=== PATIENT | male | born 1945 | race Caucasian/White ===

== ENCOUNTER 2020-06-19 12:12 | Day surgery (SDC) | payer MEDICARE ==
[2020-06-17 15:01] LABS: ALANINE AMINOTRANSFERASE 34 U/L (12-78); ALBUMIN 4.1 g/dL (3.4-5.0); ANION GAP 4 mmol/L (5-15); CALCIUM 8.9 mg/dL (8.5-10.1); CHLORIDE 106 mmol/L (98-107); CREATININE 1.04 mg/dL (0.7-1.3)
[2020-06-17 15:03] LABS: ALKALINE PHOSPHATASE 58 U/L (45-117); BILIRUBIN,TOTAL 0.7 mg/dL (0.2-1.0); TOTAL PROTEIN 7.7 g/dL (6.4-8.2)
[~2020-06-19] VITALS: Ht 177.8 cm; Wt 88.0 kg
[~2020-06-19 12:12] MED LIST: ASPI81TA45 PO; FINA5TAB4 PO; FLUT9.9S NAS; LOSA50TA14 PO; METO25TA91 PO; MULT-449 PO; POLY17PO5 PO; SIMV40TA20 PO; TAMS-11 PO
[2020-06-19] MEDS ORDERED: CHLORHEXIDINE 15 ML UDC MM STA (12:21)
[2020-06-19 12:27] VITALS: BP 152/81
[2020-06-19] MEDS ORDERED: LACTATED RINGERS 1,000 ML IV SCH (12:30)
[2020-06-19] MEDS ORDERED: CHLORHEXIDINE 15 ML UDC ONE (12:34)
[2020-06-19] MEDS ORDERED: MIDAZOLAM 1 MG/ML, 2ML ONE (13:02)
[2020-06-19] MEDS ORDERED: FENTANYL PF 100 MCG/2ML ONE (13:02)
[2020-06-19] MEDS ORDERED: PROMETHAZINE 25 MG/ML, 1ML IVPush PRN (13:30)
[2020-06-19] MEDS ORDERED: MEPERIDINE/PF 25MG/0.5ML IVPush PRN (13:30)
[2020-06-19] MEDS ORDERED: LABETALOL 5MG/ML, 20ML IV PRN (13:30)
[2020-06-19] MEDS ORDERED: FENTANYL PF 100 MCG/2ML IV PRN (13:30)
[2020-06-19] MEDS ORDERED: ACETAMINOPHEN 325 MG TABLET PO PRN (13:30)
[2020-06-19] MEDS ORDERED: LORazepam 2 MG/ML, 1ML IVPush PRN (13:30)
[2020-06-19] MEDS ORDERED: OXYcodone 5 MG/5 ML ORAL.SOL UDC PO PRN (13:30)
[2020-06-19] MEDS ORDERED: HYDROmorphone 1 MG/ML, 1ML INJ IVPush PRN (13:30)
[2020-06-19] MEDS ORDERED: PHENYLEPHRINE 10 MG/ML ONE (13:55)
[2020-06-19] MEDS ORDERED: KETOROLAC 30 MG/1 ML ONE (13:55)
[2020-06-19] MEDS ORDERED: ROCURONIUM 10 MG/ML,10ML ONE (13:55)
[2020-06-19] MEDS ORDERED: SUCCINYLCHOLINE 20 MG/ML, 10ML ONE (13:55)
[2020-06-19] MEDS ORDERED: DEXAMETHASONE 4 MG/ML, 1ML ONE (14:24)
[2020-06-19] MEDS ORDERED: PROPOFOL 10 MG/ML, 20ML ONE (14:24)
[2020-06-19] MEDS ORDERED: CEFAZOLIN 1,000 MG ONE (14:24)
[2020-06-19] MEDS ORDERED: ONDANSETRON 2MG/ML, 2ML ONE (14:24)
== END 2020-06-19 16:30 | disposition home or self-care (01) ==
LOC: OUT 12:12
PROVIDERS: ATTEND Orthopaedic Surgery Foot and Ankle Surgery
DX: S86.012A Strain of left Achilles tendon, initial encounter (principal); Z20.828 Contact with and (suspected) exposure to other viral communicable diseases; G89.18 Other acute postprocedural pain; I11.0 Hypertensive heart disease with heart failure; I50.9 Heart failure, unspecified; I25.2 Old myocardial infarction; I25.10 Atherosclerotic heart disease of native coronary artery without angina pectoris; E78.5 Hyperlipidemia, unspecified; Z79.899 Other long term (current) drug therapy; Z95.0 Presence of cardiac pacemaker; X50.9XXA Other and unspecified overexertion or strenuous movements or postures, initial encounter; Y93.89 Activity, other specified; Y92.59 Other trade areas as the place of occurrence of the external cause; Y99.8 Other external cause status
CPT/HCPCS: 27650; 36415; 64445; 64447; 80053; 87635; 93005; J0330; J0690; J1100; J1885; J2250; J2370; J2405; J2704; J3010; J7120